=== PATIENT | male | born 2005 | race African-American/Black ===

== ENCOUNTER 2024-01-17 13:53 | Emergency (ER) | payer OTHER, SELFPAY ==
--- NOTE | ~2024-01-17 | XR_ITS ---
Left Knee Technique: AP, lateral, and oblique views were obtained. Clinical History: Pain Findings: No fracture or dislocation is seen. Osseous alignment is anatomic. Joint spaces are preserv ed without degenerative or erosive change. Soft tissues are unremarkable. No joint effusion is seen. Impression: Unremarkable left knee radiographs. Reviewed, dictated and finalized at [facility]. Impression: Unremarkable left knee radiographs.
[2024-01-17 14:07] VITALS: BP 143/84; PULSE 96; RESP 16; TEMP 36.4; O2SAT 96
--- NOTE | 2024-01-17 14:32 | ED.LOWEXIN ---
HPI - Extremity Injury (Lower) General Chief Complaint: Extremity Injury, Lower Stated Complaint: Left Knee Injury Time Seen by Provider: 01/17/24 14:38 Source: patient and RN notes reviewed Mode of arrival: ambulatory Limitations: no limitations History of Present Illness HPI Narrative: 18-year-old male presents with concern for left knee pain. Reports he was wrestling today when the knee was bent in an awkward way, it felt like it locked up. Reports he is having lateral pain. Reports he has had a history of meniscus tear with surgical repair in that knee. He has been using crutches. He reports pain at rest and worsening pain with weight-bearing or range of motion MD complaint: knee injury Related Data Allergies Allergy/AdvReac Type Severity Reaction Status Date / Time No Known Allergies Allergy Verified 01/17/24 14:06 Review of Systems Review of Systems: CONSTITUTIONAL: Denies malaise, chills, sweats, or fever. SKIN: Denies rash or itching, open skin, laceration, abrasion, redness, warmth MUSCULOSKELETAL: Reports left knee pain NEUROLOGIC: Denies numbness, weakness All systems reviewed & are unremarkable except as noted in HPI and below PMFSH Comments At time of signature, agree with nursing past medical, surgical, social and family history. There is no relevant family history pertinent to the presenting complaint Exam Narrative: GENERAL: Well-appearing, well-nourished, and in no acute distress. HEAD: Normocephalic, atraumatic. EYES: PERRLA, conjunctivae clear NECK: Supple. CHEST: Speaks in full sentences. No respiratory distress. HEART: Regular rate and rhythm. Normal and equal peripheral pulses. EXTREMITIES: Left knee has normal strength and sensation, limited range of motion. Mild edema, no ecchymosis. Normal sensation with sensitivity to light touch and pain. Lateral tenderness. No open wounds, no skin tenting, no devitalized tissue or atrophy, no trophic changes, no obvious deformity, alignment normal, nearby joints and structures intact. Distal pulses palpable and equal bilaterally, skin warm, dry, pink. Capillary refill less than 3 seconds. SKIN: Warm, dry, no rash. NEURO: Alert and oriented x3. PSYCH: Normal mood and affect Course Course Emergency Course: Patient is aware of diagnosis, understands and agrees to treatment plan. Anticipatory guidance given. Patient agrees to follow-up as directed and is aware of reasons to seek care at the emergency department. Portions of this record may have been created with voice recognition software Level of Care: Express Care Visit Vital Signs Vital signs: Vital Signs Temperature 97.6 F 01/17/24 14:07 Pulse Rate 96 01/17/24 14:07 Respiratory Rate 16 01/17/24 14:07 Blood Pressure 143/84 H 01/17/24 14:07 Pulse Oximetry 96 01/17/24 14:07 Oxygen Delivery Room Air 01/17/24 14:07 Temperature 97.6 F 01/17/24 14:07 Pulse Rate 96 01/17/24 14:07 Respiratory Rate 16 01/17/24 14:07 Blood Pressure 143/84 H 01/17/24 14:07 Pulse Oximetry 96 01/17/24 14:07 Oxygen Delivery Room Air 01/17/24 14:07 Reviewed. MDM - Extremity Injury (Lower) MDM Narrative Medical decision making narrative: Patients injury and pain is consistent with musculoskeletal etiology. No signs of neurological or vascular compromise on exam. Compartments and tissues are soft without signs of compartment syndrome. Pain is felt appropriate for further evaluation on an outpatient basis. Imaging Data My impression: Images reviewed, interpreted by radiologist, agree, see report. Radiologist's impression: Left Knee Technique: AP, lateral, and oblique views were obtained. Clinical History: Pain Findings: No fracture or dislocation is seen. Osseous alignment is anatomic. Joint spaces are preserved without degenerative or erosive change. Soft tissues are unremarkable. No joint effusion is seen. Impression: Unremarkable left knee radiographs. Cr
== END 2024-01-17 14:47 | disposition home or self-care (01) ==
PROVIDERS: Emergency Provider Nurse Practitioner
DX: S89.92XA Unspecified injury of left lower leg, initial encounter (principal); X50.9XXA Other and unspecified overexertion or strenuous movements or postures, initial encounter; Y93.72 Activity, wrestling
CPT/HCPCS: 73564; 99203; G0463

== ENCOUNTER 2024-01-27 07:35 | Outpatient (CLI) | payer OTHER, SELFPAY ==
--- NOTE | ~2024-01-27 | MR_ITS ---
EXAMINATION: MR knee LT wo con DATE: 01/27/2024 08:16 INDICATION: Lateral left knee pain post twisting injury TECHNIQUE: Magnetic resonance imaging (MRI) of the left knee was performed without intravenous contra st. Sequences included coronal PD-weighted FSE, coronal PD-weighted FS FSE, sagittal T2-weighted FSE , sagittal PD-weighted FS FSE and axial PD weighted fat saturated FSE. COMPARISON: None. FINDINGS: Medial compartment: Medial meniscus is normal. Articular cartilage is normal. Lateral compartment: Complex lateral meniscal tear which includes a bucket-handle tear with medial displacement of the fla p and double anterior PCL sign. There is additional tearing of the nondisplaced portion of the menisc us. There is partial thickness chondral ulceration the glenoid with prominent underlying edema-like m arrow signal change and mild cystlike changes along the lateral aspect of the posterior weightbearing lateral femoral condyle. Patellofemoral compartment: Articular cartilage is normal. Ligaments and tendons: Anterior and posterior cruciate ligaments are normal. The medial collateral ligament and fibular satinder ateral ligament complex are normal. The extensor mechanism is normal. The visualized medial and later al hamstring tendons as well as the iliotibial band are normal. Fluid: Moderate left knee joint effusion with mild synovitis at the suprapatellar pouch appear No loose oste ochondral bodies identified. Osseous/other: Bone alignment is normal. No fracture or pathologic marrow replacing process. IMPRESSION: 1. Complex lateral meniscal tear with medial displacement of a bucket-handle flap. 2. 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 Reviewed, dictated and finalized at location A. IMPRESSION: 1. Complex lateral meniscal tear with medial displacement of a bucket-handle fl ap. 2. 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
== END 2024-01-27 07:36 ==
LOC: MICIMG 07:36
PROVIDERS: PCP Orthopaedic Surgery; Visit Provider Orthopaedic Surgery
DX: S83.272A Complex tear of lateral meniscus, current injury, left knee, initial encounter (principal); S83.195A Other dislocation of left knee, initial encounter; M17.12 Unilateral primary osteoarthritis, left knee; M94.262 Chondromalacia, left knee; X50.1XXA Overexertion from prolonged static or awkward postures, initial encounter; Y93.72 Activity, wrestling
CPT/HCPCS: 73721

== ENCOUNTER 2024-02-01 01:26 | Day surgery (SDC) | payer OTHER, SELFPAY ==
--- NOTE | 2024-01-30 08:13 | PC.NURSE ---
Report to the Outpatient Waiting Room, entrance under the green pavilion located off [facility], at time _0600_ on date 02/01/24_. Planned Procedure Time: _0730_. Time changes happen often and if your time is changed the preop area will call you the afternoon before. - You and your visitor will be asked to self-screen and do not enter if you have any COVID symptoms. - A mask is optional within the hospital at this time. Patients may have clear liquids (water, carbonated beverages, clear teas, apple juice) until 3 hours prior to surgery with a maximum of 20 ounces. - No food from midnight until time of surgery - Infants may have breast milk until 4 hours before surgery, formula 6 hours prior to surgery. - Children will be allowed to drink immediately following surgery. If applicable, please bring a bottle or sippy cup to assist with drinking. Juice, water, soda, and popsicles are readily available. For infants on formula, please bring formula the day of surgery. Pacifiers are allowed. Take the following medications with a SIP of water the morning of surgery: PAIN MEDICATION IF NEEDED DO NOT STOP ANY OF YOUR OTHER PRESCRIPTION MEDICATIONS PRIOR TO SURGERY ?EXCEPT THE FOLLOWING Medications to discontinue per physician NONE Date to take last dose Please no make-up, nail hong konger, hairspray, perfume, deodorant, or body powder the day of surgery. No jewelry (including any body piercings) or valuables the day of surgery, leave them at home. Please take a shower or bath the night before, or the morning of, surgery with an antibacterial soap. Wear comfortable, loose fitting clothing. Children are encouraged to wear pajamas. - Jewelry must be removed prior to entering the operating room. Rings and piercings that are not removed may be cut off. - The hospital will not accept responsibility for valuables. - Please leave all valuables, including medications, at home the day of surgery. If you are going home after surgery, a licensed funeral limousine driver must drive you home. - NO public transportation without another adult if you receive anesthesia. - We recommend that an adult stay with you for 24 hours following discharge. - We also recommend that you do not drive, make important decision, drink alcoholic beverages, or take any drugs that were not prescribed by your health care provider for at least 24 hours after your discharge time. For Pediatric surgeries, we recommend two adults accompany the child home. Follow any additional instructions given to you from your surgeon. If you or anyone in your household have experienced Covid symptoms in the past week, please notify your surgeon or the nurse liaison at the phone number below for possible testing. Telephone instructions given to _PATIENT_and asked if any additional questions and then verbalized understanding. Patient advised to call surgeon office or pre surgery nurse liaison [phone] if any additional questions.
[2024-01-30 08:17] VITALS: BMI 26.1
--- NOTE | 2024-01-31 14:48 | PM.IMHP ---
H&P: HPI History of Present Illness Date/Time: 01/31/24 14:48 Chief Complaint: Left knee pain Narrative: 18-year-old with left knee injury. 2 weeks ago was wrestling and felt a pop on the lateral aspect of the knee. Unable to extend the knee or bear weight. MRI demonstrates meniscus tear. Patient has history of previous meniscus tear with repair. Review of Systems Constitutional: Constitutional: Denies fever(s) Eyes: Eyes: Denies blurry vision ENT: Reports Normal hearing present Cardiovascular: Cardiovascular: Denies chest pain and Denies dyspnea Respiratory: Respiratory: Denies dyspnea and Denies wheezing Gastrointestinal: Gastrointestinal: Denies abdominal pain Genitourinary: Genitourinary: Denies urinary urgency Musculoskeletal: Musculoskeletal: Reports as per HPI and Denies numbness Integumentary/Breasts: Skin/Breast: Denies changing lesions and Denies sores Neurologic: Reports Normal hearing present, Denies behavioral changes, Denies confusion, Denies numbness and Denies convulsions Psychiatric: Psychiatric: Denies behavioral changes, Denies confusion and Denies hallucinations Endocrine: Endocrine: Denies heat intolerance Hematologic/Lymphatic: Hematologic/Lymphatic: Denies easy bleeding Allergic/Immunologic: Allergic/Immunologic: Denies wheezing PMFSH Past Medical History Medical History Injury of knee, left Lateral meniscus tear Surgical History Surgical History History of knee surgery bilateral Social History Social History Social History: caffeine use Smoking status: Never smoker Alcohol intake: never Substance use: never Living arrangements: with roommate(s) Gender identity (if verbalized by the patient): Male Meds Home Medications and Allergies Home Medications Medication Instructions Recorded Confirmed Type hydrocodone 5 mg-acetaminophen 325 1 tablet PO Q4H PRN pain #30 tabs 01/19/24 01/30/24 Rx mg tablet ibuprofen 800 mg tablet 800 mg PO Q6H PRN pain #30 tabs 01/19/24 01/30/24 Rx Allergies Allergy/AdvReac Type Severity Reaction Status Date / Time No Known Allergies Allergy Verified 01/30/24 08:07 Exam Const: General: healthy appearing; No in distress or confusion Orientation/consciousness: oriented to person, oriented to place, oriented to time and No confusion HENMT: Head: normal to inspection, normocephalic and atraumatic Eyes: Conjunctivae: conjunctivae normal Sclera: sclerae normal Neck: Neck: supple and nontender Resp: Effort & Inspection: normal respiratory effort and no audible wheezes Cardio: Rate: regular rate Rhythm: regular rhythm Skin: General skin exam: no rashes or lesions noted Neuro: General: oriented to person, oriented to place, oriented to time and No confusion Extrem: Right upper extremity: normal to inspection Left upper extremity: normal to inspection Right lower extremity: hip/thigh Details: normal ROM; no tenderness, knee Details: normal to inspection, normal ROM, knee ligament exam normal Details: anterior drawer test normal, posterior drawer test normal, valgus stress test normal, varus stress test normal and Shane?s test normal and Kim's Test Details: negative medially and laterally; no tenderness and no swelling and foot Details: normal capillary refill, toes with normal ROM, vascular exam Details: dorsalis pedis pulse present and motor-sensory exam Details: light-touch normal; no tenderness; no edema Left lower extremity: normal to inspection, normal capillary refill, hip/thigh Details: normal ROM; no tenderness, knee Details: tenderness Location: of the patella, of the medial joint line and of the infrapatellar area, swelling Location: of the infrapatellar area (mild), abnormal ROM (active extension -10, flexion 110), knee ligament exam
[2024-02-01] VITALS (9 sets, daily range): BP systolic 97–138; BP diastolic 50–72; PULSE 62–89; RESP 12–18; TEMP 36.4; O2SAT 94–100; BMI 26.4
[2024-02-01] MEDS: KETOROLAC 15 MG/ML VIAL (*BKC) IV PUSH (06:57)
[2024-02-01] MEDS: ACETAMINOPHEN 500 MG TABLET 1000 MG PO (06:57)
[2024-02-01] MEDS: LACTATED RINGERS 1,000 ML 30 ML IV CONT ×2 (07:01→08:42)
--- NOTE | 2024-02-01 07:04 | WPDHPUPDATE1 ---
History and Physical Update Update Date/Time: 02/01/24 07:04 History and Physical has been reviewed, including an updated exam of the patient. There are NO changes in the patient's condition. Risks, benefits, and alternatives have been discussed and questions answered. Patient agrees to proceed with procedure.
--- NOTE | 2024-02-01 07:08 | WPDANESEPPF ---
Anes - Initial Pre Proc Eval Procedure: Operation Date: 02/01/24 07:30 Proposed Procedures p Left Knee Arthroscopy, Partial Meniscectomy and Debridement, Proceed As Indicated - Mitch Mcclure MD Date/Time: 02/01/24 07:08 Surgeon: Mitch Mcclure MD Pre Op Diagnosis: left knee pain,left lateral meniscus tear Patient Data Age: 18 Gender: M Height: 1.8 m Weight: 85 kg Allergies Allergy/AdvReac Type Severity Reaction Status Date / Time No Known Allergies Allergy Verified 01/30/24 08:07 Home Medications Medication Instructions Recorded Confirmed Type hydrocodone 5 mg-acetaminophen 325 1 tablet PO Q4H PRN pain #30 tabs 01/19/24 01/30/24 Rx mg tablet hydrocodone 7.5 mg-acetaminophen 1 tablet PO Q6H PRN pain #30 tabs 02/01/24 Rx 325 mg tablet ibuprofen 800 mg tablet 800 mg PO Q6H PRN pain #30 tabs 02/01/24 Rx ondansetron 8 mg disintegrating 8 mg PO Q8H PRN nausea and 02/01/24 Rx tablet vomiting #10 tabs polyethylene glycol 3350 17 gram 17 g PO DAILY PRN constipation #14 02/01/24 Rx oral powder packet ea sennosides 8.6 mg-docusate sodium 1 tab-cap PO BID PRN constipation 02/01/24 Rx 50 mg tablet (Senna with Docusate #20 tabs Sodium) Patient hx anesthesia problems: none Family hx anesthesia problems: none Results Review: All pre-operative results and documents have been reviewed as part of the pre-operative evaluation. [facility] Past Medical History Medical History Injury of knee, left Lateral meniscus tear Surgical History Surgical History History of knee surgery bilateral Social History Social History Social History: caffeine use Smoking status: Never smoker Alcohol intake: never Substance use: never Living arrangements: with roommate(s) Gender identity (if verbalized by the patient): Male Anes - Eval Final PreProcedure Day of Procedure 02/01/24 07:08 Patient weight: normal Heart: regular rate and rhythm Lungs: clear to auscultation Airway: Mallampati scale class II Neurological: alert and oriented Last oral intake: >/= 8 hours ASA classification: I Emergent: no Anesthetic plan: proceed Anesthesia type and monitoring: general and standard monitoring Results Review: All pre-operative results and documents have been reviewed as part of the pre-operative evaluation. Informed Consent: The patient's anesthetic plan and its attendant risks and benefits were discussed with the patient/family/POA. Questions were solicited and answers provided to the satisfaction of the patient/family/POA.
[2024-02-01] MEDS: ceFAZolin 2 GM/D5W 50 ML 2 GM/50 ML BAG IVPB (07:23)
[2024-02-01] MEDS: BUPivacaine HCL 0.25% PF 10 ML VIAL INFILTRATE (07:39)
[2024-02-01] MEDS: BUPIVACAINE/EPINEPHRINE 0.5% 10 ML VIAL INFILTRATE (07:40)
--- NOTE | 2024-02-01 08:44 | P.OP_ITS ---
Procedure Note - Detailed Date of Procedure 02/01/24 Pre-op Diagnosis left knee pain,left lateral meniscus tear Post-op Diagnosis Same Procedure Performed Left knee arthroscopy with partial lateral meniscectomy Surgeon Mitch Mcclure MD Anesthesia General Indications 18-year-old gentleman who is status post repair of previous left knee lateral meniscus tear. His repair as failed. He has displacement of the torn fragment into the intercondylar notch in a locked knee. This is confirmed with MRI. He presents for operative treatment. Findings Posterior horn lateral meniscus tear with displacement into the intercondylar notch. Bucket-handle type tear. Evidence of previous repair with suture material present. medial meniscus intact, medial compartment intact. Patellofemoral articulation intact. ACL PCL intact. Minimal wear and evidence trauma to the lateral femoral. Lateral tibial plateau intact. Description of Procedure Informed consent given by patient. Operative extremity marked in preoperative holding area. Patient received intravenous antibiotics. Patient brought to operating room and underwent general anesthetic by anesthesia team. Positioned supine on operating room table. Left leg placed into a posterior thigh leg packer. Foot of the table dropped to 90? and right leg padded out of the field. Time-out performed confirming patient, site of surgery and plan. Left knee pre pped and draped in usual sterile surgical fashion using ChloraPrep skin solution. Standard arthroscopic portals made by using a 11 blade knife for the anterior lateral portal 1st. Capsule penetrated bluntly. Camera and inflow started. The above operative findings noted. Intra-articular visualization used to position the anterior medial portal using 22 gauge spinal needle. A 11 blade knife used for the skin and blunt penetration of the capsule. 4.7 millimeter arthroscopic shaver introduced and partial lateral meniscectomy of the loose and torn portion performed. Edge of meniscus completed with arthroscopic Wand. Arthroscopic Wand used to perform Minimal chondroplasty of the lateral femoral condyle. Shaver reintroduced and a synovectomy performed of the anterior fat pad and extensive synovium. Bleeding points coagulated with Wand. Knee inspected, no loose pieces noted. 1 liter of irrigant infused and suction out. Arthroscopic cannulas removed. Skin closed with 4 nylon interrupted suture. Local anesthetic with 0.25% Marcaine. Sterile dressing applied. Patient awoken from anesthesia, extubated and taken to recovery room in stable condition. All sponge needle and instrument counts correct at the end of the case. Estimated Blood Loss 5 Tourniquet Time Total Tourniquet Time: 0 Drains No Packing No Pathology None sent Complications None Condition Stable Disposition PACU [facility] Billing Surgery - Charge Forward: Surgery Billing ([id number])
[2024-02-01] MEDS: fentaNYL CITRATE INJ (*CRX) 100 MCG/2 ML VIAL 25 MCG IV PUSH ×8 (09:23→09:40)
[2024-02-01] MEDS: HYDROmorphone HCL INJ (*CRX) 1 MG/ML SYR 0.25 MG IV PUSH ×4 (09:44→09:59)
[2024-02-01] MEDS: oxyCODONE HCL (*CRX) 5 MG TAB IR PO (10:06)
== END 2024-02-01 10:43 | disposition home or self-care (01) ==
PROVIDERS: Visit Provider Orthopaedic Surgery
PROC: (CPT 29870; principal; 2024-02-01 07:30)
DX: S83.252A Bucket-handle tear of lateral meniscus, current injury, left knee, initial encounter (principal); Z79.891 Long term (current) use of opiate analgesic; Z79.1 Long term (current) use of non-steroidal anti-inflammatories (NSAID); Z98.890 Other specified postprocedural states; Y93.72 Activity, wrestling
CPT/HCPCS: 29881; A9270; J0690; J1100; J1170; J1885; J2250; J2405; J2704; J3010; J7120